=== PATIENT | female | born 1975 | race Caucasian/White ===

== ENCOUNTER 2016-11-20 10:30 | Outpatient (RCR) | payer MEDICAID ==
[~2016-11-20 10:30] MED LIST: AMOXICILLI125 MG/51 PO; AMOXICILLIN 50500 MG PO; ASPIR-LOW81 MG PO; BUMEX1 MG PO; CEPHALEXIN500 M1 PO; COUMADIN; DOXYCYCLINE 10100 MG PO; K + POTASSIUM20 MEQ PO; LASIX; LEVOTHYROXIN0.075 MG PO; LOPRESSOR 550 MG/TAB PO; MICRO-K8 MEQ PO; PERCOCET 5/321 UDTAB PO; POTASSIUM CH2 MEQ/ML PO; PRENATAL VITAMI1 TA5 PO; PRENATAL1 TA1 PO; PROZAC WEEKLY 990 MG PO; SERTRALINE; SYNTHROID0.05 MG/TA PO; TORSEMIDE20 MG PO; VICODIN 5/5001 UDTAB PO; VIT B6; VITAMIN B12 PO; [UNRECOGNIZED DRUG - OTHER]
== END 2017-01-26 | disposition home or self-care (01) ==
LOC: MKS.ESL.PT
DX: I89.0 Lymphedema, not elsewhere classified (principal)

== ENCOUNTER 2017-04-28 14:36 | Inpatient (IN) | payer MEDICAID ==
[~2017-04-28] VITALS: Ht 157.5 cm; Wt 197.3 kg
[2017-04-28 14:56] VITALS: BP 122/67; PULSE 99; TEMP 98.7
[2017-04-28] MEDS ORDERED: ABILIFY 10MG TA10 MG PO (15:00)
[2017-04-28] MEDS ORDERED: K-DUR20 MEQ PO (15:00)
[2017-04-28] MEDS ORDERED: VENTOLIN0.09 MG IH (15:01)
[2017-04-28] MEDS ORDERED: STRATTERA80 MG PO (15:02)
[2017-04-28] MEDS ORDERED: ZAROXOLYN 2.52.5 MG PO (15:10)
[2017-04-28] MEDS ORDERED: CYMBALTA 60MG60 MG PO (15:19)
[2017-04-28 16:01] VITALS: BP 122/67; PULSE 99; TEMP 98.7
[2017-04-28 16:30] LABS: MEAN CELL VOLUME 82 fl (80.0-100.0); MEAN CORPUSCULAR HGB CONC 33 g/dl (33.0-37.0); MEAN PLATELET VOLUME 9.1 fl (7.4-10.4); PLATELET COUNT 281 K/mm3 (130-400); RED BLOOD COUNT 4.07 M/mm3 (4.10-5.30); REDCELL DISTRIBUTION WIDTH-CV 15.8 % (11.5-14.5); WHITE BLOOD COUNT 13.4 K/mm3 (4.8-10.8)
[2017-04-28 16:42] LABS: ADJUSTED CALCIUM 8.7 mg/dL (8.4-10.2); BILIRUBIN,TOTAL 1.3 mg/dL (0.0-1.0); CALCIUM 7.9 mg/dL (8.4-10.2); CREATININE, serum 0.7 mg/dL (0.52-1.25); TOTAL PROTEIN 6.8 gm/dL (6.4-8.2)
[2017-04-28 16:44] LABS: HEMATOCRIT 33.4 % (37.0-47.0); HEMOGLOBIN 11.1 g/dl (12.5-16.0); MEAN CORPUSCULAR HEMOGLOBIN 27 pg (27.0-31.0); POTASSIUM 2.3 mmol/L (3.4-5.0)
[2017-04-28 17:04] LABS: C-REACTIVE PROTEIN 22.8 mg/dL (0.0-0.9)
[2017-04-28 17:10] LABS: MAGNESIUM 1.8 mg/dL (1.6-2.3)
[2017-04-28 17:32] LABS: BAND 24 % (0-10); METAMYELOCYTE 3 % (0-0); MICROCYTOSIS 1+; MYELOCYTE 2 % (0-0); NEUTROPHILS 53 % (42.0-75.2); TOTAL CELLS COUNTED 100
[2017-04-28 17:33] LABS: PLATELET ESTIMATE NORMAL (NORMAL)
[2017-04-28 17:34] LABS: ADD PATHOLOGY DIFF REVIEW YES
[2017-04-28 20:12] LABS: PH 5 (5-8); SQUAMOUS EPITHELIAL 0-2 /hpf; URINE APPEARANCE Clear; URINE BACTERIA Rare /hpf; URINE BILIRUBIN Negative (NEGATIVE); URINE BLOOD Negative (NEGATIVE); URINE COLOR Amber; URINE GLUCOSE Negative (NEGATIVE); URINE KETONE 1+ (NEGATIVE); URINE RBC 0-2 /hpf; URINE UROBILINOGEN >=4.0 mg/dL (NEGATIVE)
[2017-04-28 20:40] VITALS: BP 109/52; PULSE 83; TEMP 98.5
[2017-04-29] VITALS (7 sets, daily range): BP systolic 100–124; BP diastolic 55–69; PULSE 68–86; TEMP 97.8–98.8
[2017-04-29 07:37] LABS: MEAN CELL VOLUME 85 fl (80.0-100.0); MEAN CORPUSCULAR HGB CONC 32 g/dl (33.0-37.0); MEAN PLATELET VOLUME 9.1 fl (7.4-10.4); PLATELET COUNT 306 K/mm3 (130-400); RED BLOOD COUNT 3.86 M/mm3 (4.10-5.30); REDCELL DISTRIBUTION WIDTH-CV 16.2 % (11.5-14.5); WHITE BLOOD COUNT 12.3 K/mm3 (4.8-10.8)
[2017-04-29 07:38] LABS: HEMATOCRIT 32.7 % (37.0-47.0); HEMOGLOBIN 10.3 g/dl (12.5-16.0); MEAN CORPUSCULAR HEMOGLOBIN 27 pg (27.0-31.0)
[2017-04-29 07:39] LABS: ADD PATHOLOGY DIFF REVIEW NO
[2017-04-29 07:54] LABS: CALCIUM 7.7 mg/dL (8.4-10.2); CREATININE, serum 0.71 mg/dL (0.52-1.25)
[2017-04-29 07:56] LABS: POTASSIUM 2.5 mmol/L (3.4-5.0)
[2017-04-29 08:58] LABS: BAND 33 % (0-10); BASOPHIL 1 % (0-2); METAMYELOCYTE 2 % (0-0); MYELOCYTE 1 % (0-0); NEUTROPHILS 39 % (42.0-75.2); TOTAL CELLS COUNTED 100
[2017-04-29 08:59] LABS: PLATELET ESTIMATE NORMAL (NORMAL)
[2017-04-30 03:58] VITALS: BP 104/54; PULSE 78; TEMP 97.5
[2017-04-30 08:12] LABS: PATHOLOGY DIFF REVIEW OK
[2017-04-30 08:28] VITALS: BP 123/80; PULSE 87; TEMP 98.2
[2017-04-30 08:32] LABS: MEAN CELL VOLUME 84 fl (80.0-100.0); MEAN CORPUSCULAR HGB CONC 32 g/dl (33.0-37.0); MEAN PLATELET VOLUME 8.9 fl (7.4-10.4); PLATELET COUNT 364 K/mm3 (130-400); RED BLOOD COUNT 4.09 M/mm3 (4.10-5.30); REDCELL DISTRIBUTION WIDTH-CV 16.4 % (11.5-14.5); WHITE BLOOD COUNT 14.4 K/mm3 (4.8-10.8)
[2017-04-30 08:39] LABS: ADD PATHOLOGY DIFF REVIEW NO; HEMATOCRIT 34.5 % (37.0-47.0); MEAN CORPUSCULAR HEMOGLOBIN 27 pg (27.0-31.0)
[2017-04-30 08:41] LABS: CALCIUM 8.1 mg/dL (8.4-10.2); CREATININE, serum 0.62 mg/dL (0.52-1.25); POTASSIUM 3.4 mmol/L (3.4-5.0)
[2017-04-30 09:25] LABS: BAND 12 % (0-10); EOSINOPHIL 1 % (0-4); METAMYELOCYTE 1 % (0-0); MYELOCYTE 1 % (0-0); NEUTROPHILS 71 % (42.0-75.2); PLATELET ESTIMATE NORMAL (NORMAL); TOTAL CELLS COUNTED 100
[2017-04-30 09:26] LABS: MICROCYTOSIS 1+
[2017-04-30 12:08] VITALS: BP 119/71; PULSE 83; TEMP 97.6
[2017-04-30 16:10] VITALS: BP 114/48; PULSE 86; TEMP 98
[2017-04-30 20:27] VITALS: BP 107/48; PULSE 88; TEMP 98.7
[2017-04-30 23:34] VITALS: BP 108/42; PULSE 86; TEMP 98.4
[2017-05-01 03:02] VITALS: BP 113/49; PULSE 65; TEMP 98.7
[2017-05-01 08:26] VITALS: BP 109/46; PULSE 85; TEMP 98.5
[2017-05-01 09:25] LABS: MEAN CELL VOLUME 84 fl (80.0-100.0); MEAN CORPUSCULAR HGB CONC 32 g/dl (33.0-37.0); MEAN PLATELET VOLUME 8.6 fl (7.4-10.4); PLATELET COUNT 362 K/mm3 (130-400); RED BLOOD COUNT 3.95 M/mm3 (4.10-5.30); REDCELL DISTRIBUTION WIDTH-CV 16.2 % (11.5-14.5)
[2017-05-01 09:30] LABS: ADD PATHOLOGY DIFF REVIEW NO; HEMATOCRIT 33.2 % (37.0-47.0); HEMOGLOBIN 10.6 g/dl (12.5-16.0); MEAN CORPUSCULAR HEMOGLOBIN 27 pg (27.0-31.0)
[2017-05-01 09:43] LABS: CALCIUM 8.1 mg/dL (8.4-10.2); CREATININE, serum 0.62 mg/dL (0.52-1.25); POTASSIUM 3.4 mmol/L (3.4-5.0)
[2017-05-01 10:58] LABS: BAND 9 % (0-10); EOSINOPHIL 4 % (0-4); METAMYELOCYTE 2 % (0-0); MYELOCYTE 3 % (0-0); NEUTROPHILS 73 % (42.0-75.2); PLATELET ESTIMATE NORMAL (NORMAL); TOTAL CELLS COUNTED 100
[2017-05-01 10:59] LABS: ANISOCYTOSIS 1+; OVALOCYTES 1+; POLYCHROMASIA 1+; TOXIC GRANULATION PRESENT
[2017-05-01 11:32] VITALS: BP 118/59; PULSE 82; TEMP 98.2
[2017-05-01 15:20] VITALS: BP 111/60; BP 138/121; PULSE 80; TEMP 98.4
[2017-05-01 20:30] VITALS: BP 107/57; PULSE 83; TEMP 98.1
[2017-05-02 03:14] VITALS: BP 128/64; PULSE 73; TEMP 97.5
[2017-05-02 07:38] VITALS: BP 116/66; PULSE 66; TEMP 97.9
[2017-05-02 07:50] LABS: MEAN CELL VOLUME 87 fl (80.0-100.0); MEAN CORPUSCULAR HGB CONC 31 g/dl (33.0-37.0); PLATELET COUNT 412 K/mm3 (130-400); RED BLOOD COUNT 3.99 M/mm3 (4.10-5.30); REDCELL DISTRIBUTION WIDTH-CV 16.6 % (11.5-14.5); WHITE BLOOD COUNT 13.2 K/mm3 (4.8-10.8)
[2017-05-02 07:57] LABS: HEMATOCRIT 34.6 % (37.0-47.0); HEMOGLOBIN 10.8 g/dl (12.5-16.0); MEAN CORPUSCULAR HEMOGLOBIN 27 pg (27.0-31.0)
[2017-05-02 07:58] LABS: ADD PATHOLOGY DIFF REVIEW NO
[2017-05-02 07:59] LABS: CALCIUM 8.6 mg/dL (8.4-10.2); CREATININE, serum 0.71 mg/dL (0.52-1.25); POTASSIUM 4.6 mmol/L (3.4-5.0)
[2017-05-02 11:25] VITALS: BP 106/69; PULSE 68; TEMP 96.9
[2017-05-02 13:36] LABS: BAND 15 % (0-10); EOSINOPHIL 1 % (0-4); NEUTROPHILS 74 % (42.0-75.2); PLATELET ESTIMATE INCREASED (NORMAL); TOTAL CELLS COUNTED 100
[2017-05-02 15:30] VITALS: BP 123/59; PULSE 74; TEMP 96.7
[2017-05-02 20:26] VITALS: BP 110/52; PULSE 78; TEMP 97.7
[2017-05-03 01:29] VITALS: BP 116/42; PULSE 88; TEMP 97.7
[2017-05-03 04:51] VITALS: BP 108/42; PULSE 76; TEMP 98
[2017-05-03 07:59] VITALS: BP 114/56; PULSE 72; TEMP 98.2
[2017-05-03 08:40] LABS: MEAN CELL VOLUME 86 fl (80.0-100.0); MEAN CORPUSCULAR HGB CONC 32 g/dl (33.0-37.0); MEAN PLATELET VOLUME 8.5 fl (7.4-10.4); PLATELET COUNT 402 K/mm3 (130-400); REDCELL DISTRIBUTION WIDTH-CV 16.4 % (11.5-14.5); WHITE BLOOD COUNT 13.2 K/mm3 (4.8-10.8)
[2017-05-03 08:51] LABS: ADD PATHOLOGY DIFF REVIEW NO; HEMATOCRIT 34.4 % (37.0-47.0); HEMOGLOBIN 10.9 g/dl (12.5-16.0); MEAN CORPUSCULAR HEMOGLOBIN 27 pg (27.0-31.0)
[2017-05-03 09:49] LABS: BAND 18 % (0-10); EOSINOPHIL 2 % (0-4); METAMYELOCYTE 1 % (0-0); MYELOCYTE 2 % (0-0); NEUTROPHILS 67 % (42.0-75.2); PLATELET ESTIMATE INCREASED (NORMAL); TOTAL CELLS COUNTED 100
[2017-05-03 09:50] LABS: ANISOCYTOSIS 1+
[2017-05-03 11:28] VITALS: BP 112/46; PULSE 79; TEMP 97.7
[2017-05-03 15:21] VITALS: BP 126/56; PULSE 79; TEMP 99
[2017-05-03] MEDS ORDERED: NORCO 325 MG-51 TAB PO (15:23)
[2017-05-03] MEDS ORDERED: CIPRO750 MG PO (15:25)
[2017-05-03] MEDS ORDERED: DOXYCYCLINE 10100 MG PO (15:26)
[2017-05-03] MEDS ORDERED: MULTIPLE VITAMI1 CAP PO (15:27)
== END 2017-05-03 16:34 | disposition home or self-care (01) | DRG 603 ==
LOC: MEDICAL 14:36
PROVIDERS: Internal Medicine; Physician Assistant
DX: L03.116 Cellulitis of left lower limb (principal); E87.1 Hypo-osmolality and hyponatremia; N39.0 Urinary tract infection, site not specified; Z68.45 Body mass index [BMI] 70 or greater, adult; I89.0 Lymphedema, not elsewhere classified; E66.01 Morbid (severe) obesity due to excess calories; E03.9 Hypothyroidism, unspecified; F32.9 Major depressive disorder, single episode, unspecified; B96.20 Unspecified Escherichia coli [E. coli] as the cause of diseases classified elsewhere; Z86.718 Personal history of other venous thrombosis and embolism
CPT/HCPCS: 99222-AI; 99232-AI; 99233-AI; 99239; J0690; J0692; J1650; J2270; J3370; J7040

== ENCOUNTER 2018-02-11 13:52 | Emergency (ER) | payer MEDICAID ==
[~2018-02-11] VITALS: Ht 162.6 cm; Wt 210.5 kg
[~2018-02-11 13:52] MED LIST changes: +ABILIFY 10MG TA10 MG PO; +CIPRO750 MG PO; +CYMBALTA 60MG60 MG PO; +K-DUR20 MEQ PO; +MULTIPLE VITAMI1 CAP PO; +NORCO 325 MG-51 TAB PO; +STRATTERA80 MG PO; +VENTOLIN0.09 MG IH; +ZAROXOLYN 2.52.5 MG PO
[2018-02-11 13:56] VITALS: TEMP 98.1
[2018-02-11 14:57] LABS: BASO % 0.5 % (0.0-2.0); EOS # 0.1 (0.0-0.7); EOS % 0.9 % (0-4.0); GRAN # 4.5 (1.4-6.5); GRAN % 70.4 % (42.2-75.2); HEMATOCRIT 41.7 % (37.0-47.0); HEMOGLOBIN 13.8 g/dl (12.5-16.0); LYMPH # 1.2 (1.2-3.4); MEAN CELL VOLUME 87 fl (80.0-100.0); MEAN CORPUSCULAR HEMOGLOBIN 29 pg (27.0-31.0); MEAN CORPUSCULAR HGB CONC 33 g/dl (33.0-37.0); MEAN PLATELET VOLUME 9.2 fl (7.4-10.4); MONO # 0.6 (0.1-0.6); MONO % 8.7 % (1.7-9.3); PLATELET COUNT 284 K/mm3 (130-400); RED BLOOD COUNT 4.81 M/mm3 (4.10-5.30); REDCELL DISTRIBUTION WIDTH-CV 12.4 % (11.5-14.5)
[2018-02-11 15:10] LABS: BILIRUBIN,TOTAL 0.8 mg/dL (0.0-1.0); CALCIUM 9.4 mg/dL (8.4-10.2); CREATININE, serum 0.65 mg/dL (0.52-1.25); POTASSIUM 3.9 mmol/L (3.4-5.0); TOTAL PROTEIN 8.7 gm/dL (6.4-8.2)
[2018-02-11] MEDS ORDERED: AMOXICILLIN 8751 TAB PO (16:07)
[2018-02-11 16:31] VITALS: BP 135/77; PULSE 70
[2018-02-11] MEDS ORDERED: BUMEX 1MG TA1 MG/TA1 PO (16:35)
== END 2018-02-11 17:00 | disposition home or self-care (01) ==
LOC: COL.ER 13:52
PROVIDERS: Emergency Medicine
DX: L03.115 Cellulitis of right lower limb (principal); L03.116 Cellulitis of left lower limb; E66.01 Morbid (severe) obesity due to excess calories; E03.9 Hypothyroidism, unspecified; Z68.45 Body mass index [BMI] 70 or greater, adult; Z98.890 Other specified postprocedural states
CPT/HCPCS: J0690; J7040

== ENCOUNTER → 2018-03-31 | Outpatient (REF) ==
[~2018-03-31] MED LIST changes: +AMOXICILLIN 8751 TAB PO; +BUMEX 1MG TA1 MG/TA1 PO
[2018-03-31 18:53] LABS: THYROID STIMULATING HORMONE < 0.015 uIU/mL (0.465-4.680)
== END ==
LOC: ZLAB.WCH 17:53
PROVIDERS: Family Medicine
DX: Z01.89 Encounter for other specified special examinations (principal)

== ENCOUNTER 2018-08-19 14:06 | Outpatient (RCR) | payer MEDICAID | END 2018-11-17 | disposition home or self-care (01) | LOC: MKS.ESL.PT | DX: I89.0 Lymphedema, not elsewhere classified (principal); E66.01 Morbid (severe) obesity due to excess calories; Z68.45 Body mass index [BMI] 70 or greater, adult; L98.9 Disorder of the skin and subcutaneous tissue, unspecified; R26.89 Other abnormalities of gait and mobility ==

== ENCOUNTER 2020-06-12 13:57 | Outpatient (RCR) | payer MEDICAID | END 2020-08-29 10:09 | disposition home or self-care (01) | LOC: WSPT 13:57 | DX: I89.0 Lymphedema, not elsewhere classified (principal); E66.01 Morbid (severe) obesity due to excess calories ==

== ENCOUNTER 2021-09-05 20:33 | Inpatient (IN) | payer MEDICAID ==
[~2021-09-05] VITALS: Ht 162.6 cm; Wt 180.7 kg
[2021-09-05 21:17] LABS: BASO % 0.5 % (0.0-2.0); EOS # 0.4 K/mm3 (0.0-0.7); EOS % 4.6 % (0-4.0); GRAN # 6.2 K/mm3 (1.4-6.5); GRAN % 71.1 % (42.2-75.2); HEMATOCRIT 29.3 % (37.0-47.0); HEMOGLOBIN 8.9 g/dl (12.5-16.0); LYMPH # 1.2 K/mm3 (1.2-3.4); LYMPH % 13.8 % (20.0-51.0); MEAN CELL VOLUME 79 fl (80.0-100.0); MEAN CORPUSCULAR HEMOGLOBIN 24 pg (27.0-31.0); MEAN CORPUSCULAR HGB CONC 30 g/dl (33.0-37.0); MEAN PLATELET VOLUME 8.9 fl (7.4-10.4); MONO # 0.8 K/mm3 (0.1-0.6); MONO % 9.3 % (1.7-9.3); PLATELET COUNT 334 K/mm3 (130-400); RED BLOOD COUNT 3.71 M/mm3 (4.10-5.30); REDCELL DISTRIBUTION WIDTH-CV 17.2 % (11.5-14.5)
[2021-09-05 21:31] LABS: ALANINE AMINOTRANSFERASE 18 U/L (0-55); ALBUMIN 3.2 gm/dL (3.5-5.0); ALKALINE PHOSPHATASE 102 U/L (40-150); ANION GAP 11 mmol/L (7-16); AST,SGOT 22 U/L (5-34); BILIRUBIN,TOTAL 0.4 mg/dL (0.2-1.2); BLOOD UREA NITROGEN 18 mg/dL (7-19); CALCIUM 8.4 mg/dL (8.4-10.2); CARBON DIOXIDE 20 mmol/L (22-29); CHLORIDE 108 mmol/L (98-107); CREATINE KINASE 89 U/L (29-168); CREATININE, serum 0.76 mg/dL (0.57-1.11); GLUCOSE 88 mg/dL (70-99); POTASSIUM 3.6 mmol/L (3.5-4.5); SODIUM 139 mmol/L (136-145); TOTAL PROTEIN 7.1 gm/dL (6.2-8.1)
[2021-09-05 21:34] LABS: COLLECTION METHOD IN
[2021-09-05 21:37] LABS: TROPONIN-I < 0.010 ng/mL (0.00-0.033)
[2021-09-05 21:42] LABS: MUCOUS Present /lpf; PH 5 (5-8); SQUAMOUS EPITHELIAL None Seen /hpf; URINE APPEARANCE Hazy; URINE BACTERIA None Seen /hpf; URINE BILIRUBIN Negative (NEGATIVE); URINE BLOOD Negative (NEGATIVE); URINE COLOR Amber; URINE GLUCOSE Negative (NEGATIVE); URINE KETONE Negative (NEGATIVE); URINE LEUKOCYTE ESTERASE Negative (NEGATIVE); URINE NITRATE Negative (NEGATIVE); URINE PROTEIN(semi-quant) Negative (NEGATIVE); URINE RBC 0-2 /hpf; URINE UROBILINOGEN Negative (NEGATIVE)
[2021-09-05] MEDS ORDERED: SYNTHROID 0.10.15 MG PO (23:12)
[2021-09-05] MEDS ORDERED: K-DUR20 MEQ PO (23:13)
[2021-09-05] MEDS ORDERED: ZOLOFT 100MG100 MG PO (23:14)
[2021-09-05] MEDS ORDERED: ELIQUIS 5MG PO (23:17)
[2021-09-05] MEDS ORDERED: NITROSTAT0.4 MG/TAB SL (23:19)
[2021-09-05] MEDS ORDERED: KAPSPARGO SPRIN25 MG PO (23:20)
[2021-09-05] MEDS ORDERED: NORVASC2.5 MG PO (23:20)
[2021-09-05 23:23] LABS: C-REACTIVE PROTEIN 3.68 mg/dL (0.00-0.50)
[2021-09-05 23:25] LABS: MAGNESIUM 1.8 mg/dL (1.6-2.6)
[2021-09-05 23:45] LABS: THYROID STIMULATING HORMONE 12.219 uIU/mL (0.350-4.940)
[2021-09-05 23:49] LABS: IRON,SERUM 18 ug/dL (35-150); TOTAL IRON BINDING CAPACITY 341 ug/dL (265-497)
[2021-09-06 00:08] LABS: INR 1.2 (0.8-3.0); PROTHROMBIN TIME 12.9 SECONDS (9.7-12.8)
--- NOTE | 2021-09-06 00:35 | NUR ---
PATIENT ARRIVED TO ROOM FOR ADMIT TO SURGICAL UNIT VIA E.D. CART, PCT PRESENT. KatjaYGEN CONTINUES PER NC AT 2LPM. OBTAINED BEDSCALE WEIGHT OF 202.8 KG
--- NOTE | 2021-09-06 00:38 | NUR ---
REPORTS HAS RADIATING NUMBNESS DOWN LEFT ARM INTERMITTENT X1 WEEK, INDEPENDENT OF USE OR POSITIONING OF LUE. REPORTS DRIBBLING WITH WALKING UP STAIRS AND REPORTED WOULD URINATE UP TO TWICE A DAY.
[2021-09-06 00:48] VITALS: BP 106/47; PULSE 89; TEMP 98.2
[2021-09-06] MEDS ORDERED: VITAMIN B122500 MCG SL (01:02)
[2021-09-06] MEDS ORDERED: NATURAL IRON65 MG PO (01:04)
--- NOTE | 2021-09-06 02:45 | NUR ---
Spoke to pt about home CPAP usage. Pt states she wore a CPAP in the past but in her current living arrangement, she feared the CPAP would get ruined with bugs, therefore pt has not wore CPAP in a long time. Pt states she would try wearing CPAP while here. Pt is very awake at this time and would like to start the CPAP tomorrow night.
[2021-09-06 04:24] VITALS: BP 109/47; PULSE 79; TEMP 98.1
--- NOTE | 2021-09-06 06:11 | NUR ---
REPORTS HAS BURNING SENSATION DOWN L FOREARM FROM ELBOW TO THUMB SIDE OF LEFT HAND, REPORTS HAS MOVEMENT TO LEFT ARM WITH NO OTHER COMPLAINTS REPORTED AT THIS TIME.
[2021-09-06 07:08] LABS: BASO % 0.6 % (0.0-2.0); EOS # 0.4 K/mm3 (0.0-0.7); EOS % 5.7 % (0-4.0); GRAN # 4.2 K/mm3 (1.4-6.5); GRAN % 61.2 % (42.2-75.2); LYMPH # 1.4 K/mm3 (1.2-3.4); LYMPH % 20.5 % (20.0-51.0); MEAN CELL VOLUME 78 fl (80.0-100.0); MEAN CORPUSCULAR HGB CONC 30 g/dl (33.0-37.0); MEAN PLATELET VOLUME 8.7 fl (7.4-10.4); MONO # 0.8 K/mm3 (0.1-0.6); MONO % 11.6 % (1.7-9.3); PLATELET COUNT 286 K/mm3 (130-400)
[2021-09-06 07:10] LABS: HEMATOCRIT 25.7 % (37.0-47.0); HEMOGLOBIN 7.8 g/dl (12.5-16.0); MEAN CORPUSCULAR HEMOGLOBIN 24 pg (27.0-31.0)
[2021-09-06 07:25] LABS: CHOLESTEROL RISK RATIO 2.7; CREATININE, serum 0.74 mg/dL (0.57-1.11); POTASSIUM 3.6 mmol/L (3.5-4.5)
--- NOTE | 2021-09-06 07:26 | NUR ---
CHANGE OF SHIFT REPORT GIVEN TO DAY SHIFT NURSEJORGE RN.
--- NOTE | 2021-09-06 08:00 | NUR ---
Patient laying in bed watching her cell phone. A&Ox4. VSS. IV CDI. Felder intact clear yellow. Denies pain and discomfort. No reported SOB. Nurse reviewed the patients fluid restriction and the patient verbalized an understanding. No further needs expressed. Call light within reach
[2021-09-06 08:08] VITALS: BP 101/37; PULSE 77; TEMP 98.1
--- NOTE | 2021-09-06 11:29 | NUR ---
Plan is to return home in [place] with her adult children and friends. SW met with patient about her care. Patient reports that she is residing with friends because her trailer is not in good repair and cannot walk on the floor. Patient reports that her EMR contact is her DTR Niyah . Patient reports that she has a PCP Dr. Rayray Dickens in [place], Dr. Clement In [place], and Ela Gould for CHF. Patient reports that she uses the [place] [facility]. Patient reports that she uses a [facility] and has a CPAP machine but does not use it because were she is residing has bugs and does not want them to get into the machine. Patient reports that she does not drive because she does not have a car. Patient indicaed that she does not have transportation home. Another friend Mercedes Hamilton as alternate contact also. Patient reports pain in legs but denies any care concerns. Patient declined any home health services. Will continue to follow for care supports.
[2021-09-06 12:10] VITALS: BP 112/57; PULSE 67; TEMP 98.1
[2021-09-06 16:16] VITALS: BP 114/55; PULSE 68; TEMP 98
--- NOTE | 2021-09-06 17:53 | NUR ---
Patient has been resting in bed most of the shift. Did stand at the bedside with assistance of nursing staff while given a bed bath and bed linen change. A&Ox4. VSS. IV CDI. Felder intact. Interdry used between skin folds. Patient reporting midsternal chest pain, EDWIN Altamirano aware and new orders placed. No further needs expressed. Call light within reach
--- NOTE | 2021-09-06 18:55 | NUR ---
RECEIVED CHANGE OF SHIFT REPORT FROM DAY SHIFT NURSE. PATIENT SLEEPING DURING REPORT, DID NOT WAKE WHEN NURSING STAFF ENTERED ROOM. OBSERVED BREATHING NONLABORED AND EVEN. TELE IN PLACE. INT IN PLACE, WITH NO REDNESS. COLEMAN TO JEET DRAINING CLEAR YELLOW URINE AT TIME OF REPORT.
[2021-09-06 19:37] VITALS: BP 110/56; PULSE 70; TEMP 98.5
[2021-09-07 00:05] VITALS: BP 101/49; PULSE 64; TEMP 98
--- NOTE | 2021-09-07 01:18 | NUR ---
Patient care, medication administration and nursing documentation occurred during a Daylight Savings Time Change.
[2021-09-07 04:26] VITALS: BP 110/59; PULSE 88; TEMP 98.3
--- NOTE | 2021-09-07 06:10 | NUR ---
PATIENT REPORTS HAS BURNING DOWN L FORE ARM FROM L ELBOW DOWN TO THUMBSIDE OF LEFT HAND THAT PATIENT CONFIRMED HAS HAD COMPLAINTS OF DISCOMFORT IN THE PAST. COLEMAN TO DD WITH NO PROBLEMS. TELE IN PLACE.
--- NOTE | 2021-09-07 06:54 | NUR ---
CHANGE OF SHIFT REPORT GIVEN TO DAY SHIFT NURSE, RACHEL FIGUEROA.
--- NOTE | 2021-09-07 07:03 | NUR ---
REPORT RECIEVED FROM DARIO. PT RESTING IN BED. NO COMPLAINTS OF PAIN OR DYSPNEA. NO SIGNS OR SYMPTOMS OF DISTRESS. CALL LIGHT WITHIN REACH
[2021-09-07 07:31] VITALS: BP 116/42; PULSE 64; TEMP 97.8
[2021-09-07 07:32] LABS: CREATININE, serum 0.83 mg/dL (0.57-1.11); POTASSIUM 3.4 mmol/L (3.5-4.5)
[2021-09-07 07:48] LABS: BASO % 0.4 % (0.0-2.0); EOS # 0.4 K/mm3 (0.0-0.7); EOS % 5.4 % (0-4.0); GRAN # 4.5 K/mm3 (1.4-6.5); GRAN % 65.2 % (42.2-75.2); LYMPH # 1.3 K/mm3 (1.2-3.4); LYMPH % 19.1 % (20.0-51.0); MEAN CELL VOLUME 80 fl (80.0-100.0); MEAN CORPUSCULAR HGB CONC 30 g/dl (33.0-37.0); MEAN PLATELET VOLUME 8.7 fl (7.4-10.4); MONO # 0.7 K/mm3 (0.1-0.6); MONO % 9.5 % (1.7-9.3); PLATELET COUNT 294 K/mm3 (130-400); RED BLOOD COUNT 3.39 M/mm3 (4.10-5.30); REDCELL DISTRIBUTION WIDTH-CV 17.2 % (11.5-14.5)
[2021-09-07 07:58] LABS: MEAN CORPUSCULAR HEMOGLOBIN 24 pg (27.0-31.0)
--- NOTE | 2021-09-07 09:27 | NUR ---
ASSESSMENT COMPLETE. NO SIGNS OR SYMPTOMS OF DISTRESS. NO COMPLAINTS OF PAIN OR DYSPNEA. MEDICATIONS RECIEVED INCLUDING POTASSIUM PROTOCOL. CALL LIGHT WITHIN REACH
[2021-09-07 11:53] VITALS: BP 102/56; PULSE 59; TEMP 97.9
[2021-09-07 15:56] VITALS: BP 103/49; PULSE 60; TEMP 98.3
[2021-09-07 20:00] VITALS: BP 107/44; PULSE 63; TEMP 98
[2021-09-08] VITALS (8 sets, daily range): BP systolic 91–110; BP diastolic 42–67; PULSE 53–91; TEMP 97.5–98
--- NOTE | 2021-09-08 03:36 | NUR ---
RESTING QUIETLY/SLEEPING, CALL LIGHT IN REACH. CPAP ON. LUNGS DIMINSISHED IN BASES BUT NO DYSPNEA NOTED OR REPORTED.
[2021-09-08 07:16] LABS: BASO % 0.6 % (0.0-2.0); EOS # 0.4 K/mm3 (0.0-0.7); EOS % 5.7 % (0-4.0); GRAN # 4.4 K/mm3 (1.4-6.5); GRAN % 66.1 % (42.2-75.2); HEMATOCRIT 27.8 % (37.0-47.0); HEMOGLOBIN 8.4 g/dl (12.5-16.0); LYMPH # 1.2 K/mm3 (1.2-3.4); LYMPH % 17.7 % (20.0-51.0); MEAN CELL VOLUME 79 fl (80.0-100.0); MEAN CORPUSCULAR HEMOGLOBIN 24 pg (27.0-31.0); MEAN CORPUSCULAR HGB CONC 30 g/dl (33.0-37.0); MEAN PLATELET VOLUME 8.8 fl (7.4-10.4); MONO # 0.6 K/mm3 (0.1-0.6); MONO % 9.3 % (1.7-9.3); PLATELET COUNT 298 K/mm3 (130-400); REDCELL DISTRIBUTION WIDTH-CV 17.1 % (11.5-14.5)
[2021-09-08 07:29] LABS: CALCIUM 8.2 mg/dL (8.4-10.2); CREATININE, serum 0.83 mg/dL (0.57-1.11); POTASSIUM 3.7 mmol/L (3.5-4.5)
--- NOTE | 2021-09-08 08:08 | NUR ---
Patient resting in bed. Alert & oriented. She did well with breakfast. Aware of her fluid restriction. Bradford beckham DD. Int. Reports chronic pain, tyelnol Prn given. K+ replacement per protocol. Will monitor.
--- NOTE | 2021-09-08 11:31 | NUR ---
Patient assisted with hygiene. She was up to sink and brushed her teeth. Dyspnea with exertion. Extensive singh cares provided. Pannus cleansed with interdry placed. Leg folds cleanses & nystain ointment applied with interdry. Odor noted. Hospitalist & cardiology rounded & orders obtained. Therapy consulted. CHF notebook given to patient & reviewed. Patient seemed like she was aware of CHF restrictions. Dietary called to again review low sodium diet & continued fluid restriction.
--- NOTE | 2021-09-08 14:08 | NUR ---
Patient tolerated lunch & walked in halls with therapy.
--- NOTE | 2021-09-08 15:39 | NUR ---
CALLED & MADE AWARE OF BLOOD PRESSURE. SHE VERIFED STILL OKAY TO GIVE BUMEX DOSE.
--- NOTE | 2021-09-08 17:47 | NUR ---
Patient resting in bed. Dinner ordered. Good output from afternoon dose of bumex. Bradford remains to DD. She remains aware of fluid restriction. Will report off to nightnurse
--- NOTE | 2021-09-08 20:00 | NUR ---
Report received, assumed care for shift supervisor. Assessment complete. A&Ox4. Denies pain/nausea/shortness of breath. Noted to be short of breath with activity. Tele showing SR with 1AVB. Felder cath with yellow urine/sediment. Plan of care discussed for this shift to include fluid restriction. Verbalizes unerstanding/denies needs. Call light in reach. Will monitor.
[2021-09-09] VITALS (7 sets, daily range): BP systolic 98–129; BP diastolic 42–58; PULSE 52–70; TEMP 97.3–99.2
--- NOTE | 2021-09-09 05:28 | NUR ---
Rested well this shift. Wore CPAP all night and tolerated well. Fluid restriction enforced. 2700 out to singh this shift. Short of breath with activity. Denied pain. VS remained stable. Call light in reach. Will monitor.
--- NOTE | 2021-09-09 06:45 | NUR ---
awake resting in bed, bedside shift report received from HENRY Sanchez
[2021-09-09 07:06] LABS: CALCIUM 8.4 mg/dL (8.4-10.2); CREATININE, serum 0.82 mg/dL (0.57-1.11)
--- NOTE | 2021-09-09 07:30 | NUR ---
Shift assessment completed. Reports 4 out of 10 aching pain in lower back and legs. Lungs diminished in bases but no dyspnea noted or reported. Unable to palpate posterior tibial pulses. INT intact in left antecubital with no redness or swelling noted. Indwelling singh catheter intact with 270 mL of orange cloudy urine. Call light in reach.
[2021-09-09 08:21] LABS: BASO % 0.6 % (0.0-2.0); EOS # 0.4 K/mm3 (0.0-0.7); EOS % 5.2 % (0-4.0); GRAN # 4.9 K/mm3 (1.4-6.5); GRAN % 68.3 % (42.2-75.2); LYMPH # 1.1 K/mm3 (1.2-3.4); LYMPH % 15.8 % (20.0-51.0); MEAN CELL VOLUME 79 fl (80.0-100.0); MEAN CORPUSCULAR HGB CONC 31 g/dl (33.0-37.0); MEAN PLATELET VOLUME 8.8 fl (7.4-10.4); MONO # 0.7 K/mm3 (0.1-0.6); MONO % 9.5 % (1.7-9.3); PLATELET COUNT 316 K/mm3 (130-400); RED BLOOD COUNT 3.61 M/mm3 (4.10-5.30); REDCELL DISTRIBUTION WIDTH-CV 16.9 % (11.5-14.5)
[2021-09-09 08:23] LABS: HEMATOCRIT 28.5 % (37.0-47.0); HEMOGLOBIN 8.7 g/dl (12.5-16.0); MEAN CORPUSCULAR HEMOGLOBIN 24 pg (27.0-31.0)
--- NOTE | 2021-09-09 08:27 | NUR ---
sitting up in bed eating breakfast, am meds given, will complete assessment when she is finished with breakfast
--- NOTE | 2021-09-09 09:11 | NUR ---
is now just resting in bed, full assessment completed, have reviewed assessment completed by student CHECK VIEWER and in agreement with that assessment
--- NOTE | 2021-09-09 10:33 | NUR ---
physical therapy in to work with patient and assisted her up and into chair, states she feels a little "woozy", but will lay her head back and relax, instructed to notify staff if it changes, verbalizes understanding
--- NOTE | 2021-09-09 12:45 | NUR ---
assisted up and ambulated from chair to bathroom and had bowel movement, then back to Maylin youssef PA in to see patient
--- NOTE | 2021-09-09 14:32 | NUR ---
back in bed at this time and appears to be dozing
--- NOTE | 2021-09-09 14:42 | NUR ---
SW met with the patient to introduce oneself and to review discharge plan. The patient confirms that she has been staying with her friend, Mag Hamilton, in [place]. She reports that her home was inhabitable and that she plans on staying with Mag until she can find a new home. The patient reports that she has four children, but that her youngest two are not in her custody. Her oldest two: Beny ([id number]) and Niyah ([id number]) live around [place]. PT recommends home with possible home health. The patient has Medicaid and it does not pay for PT/OT home health. SW informed the patient of this and informed her of outpatient therapy. The patient reports that she feels comfortable returning back to her friend's home. She reports that she would probably be interested in outpatient therapy at [facility]. She reports that she does not drive and her friend and children do not have vehicles, but that she utilizes her Medicaid transportation. She states that she can set up transportation to her appointments, as long as she call three days in advance. *Discharge plan: home with friend*
--- NOTE | 2021-09-09 18:47 | NUR ---
bedside shift report given to HENRY Sanchez
--- NOTE | 2021-09-09 20:00 | NUR ---
Report received, assumed care for steward/stewardess night. Assessment complete. A&Ox4. Denies pain/nausea/shortness of breath. VS stable-hypotensive. INT to left AC. Fluid restriction enforced/singh cath with dark yellow urine. Noted to have excoriation behind knees and in skin folds/groin. Plan of care discussed for this shift to include medications/CPAP/fluid restriction/calling for questions/concerns. Verbalizes understanding/denies current needs. Call light in reach. Will monitor.
--- NOTE | 2021-09-10 00:30 | NUR ---
Resting eyes closed. No s/s of pain/distress noted. CPAP on.
[2021-09-10 03:37] VITALS: BP 104/39; PULSE 56; TEMP 98
--- NOTE | 2021-09-10 05:17 | NUR ---
Rested off and on this shift. Denied pain/nausea/shortness of breath at rest. Still gets SOA with activity. VS remained stable although still hypotensive-Erna is aware. Fluid restriction enforced. Denies current needs. Call light in reach. Will monitor.
[2021-09-10 05:34] VITALS: BP 105/50
--- NOTE | 2021-09-10 07:15 | NUR ---
RECEIVED REPORT FROM EHNRY TEAGUE. PT AWAKE/ALERT IN BED. DENIES PAIN. NO NEEDS AT THIS TIME. CALL SOLER IN REACH.
[2021-09-10 07:17] LABS: BASO # 0.1 K/mm3 (0.0-0.2); BASO % 0.8 % (0.0-2.0); EOS # 0.5 K/mm3 (0.0-0.7); EOS % 6.1 % (0-4.0); GRAN # 5.1 K/mm3 (1.4-6.5); GRAN % 66.2 % (42.2-75.2); HEMATOCRIT 30.2 % (37.0-47.0); HEMOGLOBIN 8.9 g/dl (12.5-16.0); LYMPH # 1.3 K/mm3 (1.2-3.4); LYMPH % 17.3 % (20.0-51.0); MEAN CELL VOLUME 79 fl (80.0-100.0); MEAN CORPUSCULAR HEMOGLOBIN 23 pg (27.0-31.0); MEAN CORPUSCULAR HGB CONC 30 g/dl (33.0-37.0); MEAN PLATELET VOLUME 8.7 fl (7.4-10.4); MONO # 0.7 K/mm3 (0.1-0.6); MONO % 8.8 % (1.7-9.3); PLATELET COUNT 340 K/mm3 (130-400); RED BLOOD COUNT 3.83 M/mm3 (4.10-5.30); REDCELL DISTRIBUTION WIDTH-CV 16.7 % (11.5-14.5)
[2021-09-10 07:28] LABS: CREATININE, serum 0.83 mg/dL (0.57-1.11); POTASSIUM 3.7 mmol/L (3.5-4.5)
[2021-09-10 08:26] VITALS: BP 141/53; PULSE 59; TEMP 97.9
[2021-09-10 11:44] VITALS: BP 106/52; PULSE 54; TEMP 97.7
[2021-09-10] MEDS ORDERED: DIFLUCAN200 MG PO (14:17)
[2021-09-10] MEDS ORDERED: SYNTHROID 0.10.15 MG PO (14:23)
[2021-09-10] MEDS ORDERED: ZOLOFT 100MG100 MG PO (14:23)
[2021-09-10] MEDS ORDERED: NYSTATIN CREAM15 GM TP (14:24)
--- NOTE | 2021-09-10 15:15 | NUR ---
The hospitalist is ready to discharge the patient today. BRANDYN staffed with OT on whether they would recommend continued outpatient OT. OT reports that they would not recommend continued OT. BRANDYN contacted [facility] at [facility] and scheduled the patient a PT appointment on , 09/18, at 1000. BRANDYN notified the community outreach coordinator and the patient of the appointment. [facility]. The patient reports that she will need a ride home. BRANDYN contacted Cate with [employer] through the patient's insurance and secured the patient a ride back to her friend's house today. Trip ID#[id number]. [employer] gives an estimated arrival time anywhere from 30 minutes-3 hours. BRANDYN updated the patient and her RN. The patient is to discharge back to her friend's home today, 09/10, with outpatient PT at [facility]. No additional needs at this time.
[2021-09-10 16:04] VITALS: BP 130/58; PULSE 61; TEMP 97.9
== END 2021-09-10 17:06 | disposition home or self-care (01) | DRG 291 ==
LOC: COL.ER 20:33 → SURG 22:00
PROVIDERS: Emergency Medicine; Nurse Practitioner Family; Physician Assistant; ADMIT Student in an Organized Health Care Education/Training Program
DX: I11.0 Hypertensive heart disease with heart failure (principal); I50.33 Acute on chronic diastolic (congestive) heart failure; Z68.45 Body mass index [BMI] 70 or greater, adult; E66.01 Morbid (severe) obesity due to excess calories; E03.9 Hypothyroidism, unspecified; F32.A Depression, unspecified; I89.0 Lymphedema, not elsewhere classified; G47.33 Obstructive sleep apnea (adult) (pediatric); I42.1 Obstructive hypertrophic cardiomyopathy; E11.9 Type 2 diabetes mellitus without complications; E87.6 Hypokalemia; D50.9 Iron deficiency anemia, unspecified; I08.1 Rheumatic disorders of both mitral and tricuspid valves; B37.2 Candidiasis of skin and nail; I48.91 Unspecified atrial fibrillation; M06.9 Rheumatoid arthritis, unspecified; J44.9 Chronic obstructive pulmonary disease, unspecified; K21.9 Gastro-esophageal reflux disease without esophagitis; F41.9 Anxiety disorder, unspecified; T50.1X6A Underdosing of loop [high-ceiling] diuretics, initial encounter; Z91.138 Patient's unintentional underdosing of medication regimen for other reason; Z86.718 Personal history of other venous thrombosis and embolism
CPT/HCPCS: 99223-AI; 99232-AI; 99233-AI; 99239; A4314; J1940; J2270

== ENCOUNTER 2023-08-02 23:48 | Emergency (ER) | payer MEDICAID ==
[~2023-08-02] VITALS: Ht 162.6 cm; Wt 179.1 kg
[~2023-08-02 23:48] MED LIST changes: +DIFLUCAN200 MG PO; +ELIQUIS 5MG PO; +KAPSPARGO SPRIN25 MG PO; +LASIX 20MG TABL20 MG PO; +LOPRESSOR 225 MG/TAB PO; +NATURAL IRON65 MG PO; +NITROSTAT0.4 MG/TAB SL; +NORVASC2.5 MG PO; +NYSTATIN CREAM15 GM TP; +OMNICEF 300MG300 MG PO; +SYNTHROID 0.0.025 MG PO; +SYNTHROID 0.10.15 MG PO; +VITAMIN B122500 MCG SL; +ZOLOFT 100MG100 MG PO
[2023-08-03 02:53] LABS: BASO # 0.1 K/mm3 (0.0-0.2); BASO % 0.6 % (0.0-2.0); EOS # 0.2 K/mm3 (0.0-0.7); EOS % 2.1 % (0.0-4.0); GRAN # 6.2 K/mm3 (1.4-6.5); HEMATOCRIT 40.4 % (37.0-47.0); LYMPH # 1.6 K/mm3 (1.2-3.4); LYMPH % 18.2 % (20.0-51.0); MEAN CELL VOLUME 89 fl (80.0-100.0); MEAN CORPUSCULAR HEMOGLOBIN 29 pg (27-31); MEAN CORPUSCULAR HGB CONC 32 g/dl (33.0-37.0); MEAN PLATELET VOLUME 8.9 fl (7.4-10.4); MONO # 0.7 K/mm3 (0.1-0.6); MONO % 7.6 % (1.7-9.3); PLATELET COUNT 279 K/mm3 (130-400); RED BLOOD COUNT 4.54 M/mm3 (4.10-5.30); REDCELL DISTRIBUTION WIDTH-CV 13.3 % (11.5-14.5)
[2023-08-03 03:19] LABS: ALBUMIN 3.7 gm/dL (3.5-5.0); BILIRUBIN,TOTAL 0.4 mg/dL (0.2-1.2); CALCIUM 9.1 mg/dL (8.4-10.2); POTASSIUM 3.8 mmol/L (3.5-4.5); TOTAL PROTEIN 7.7 gm/dL (6.2-8.1)
[2023-08-03 03:32] LABS: CREATININE, serum 0.93 mg/dL (0.57-1.11)
[2023-08-03 03:39] LABS: C-REACTIVE PROTEIN 2.47 mg/dL (0.00-0.50)
[2023-08-03 04:13] LABS: THYROID STIMULATING HORMONE 9.496 uIU/mL (0.350-4.940)
[2023-08-03 04:16] LABS: COLLECTION METHOD CLEAN CATCH
[2023-08-03 04:46] LABS: URINE APPEARANCE Hazy (CLEAR/HAZY); URINE BLOOD 2+ (NEGATIVE); URINE COLOR Amber (YELLOW); URINE GLUCOSE Negative (NEGATIVE); URINE KETONE TRACE (NEGATIVE); URINE NITRATE Negative (NEGATIVE); URINE PROTEIN(semi-quant) Negative (NEGATIVE); URINE UROBILINOGEN 0.2 E.U/dL (0.2-1.0)
[2023-08-03 04:47] LABS: MUCOUS Present (NOT PRESENT); URINE BACTERIA Occasional /hpf (NONE SEEN); URINE CALCIUM OXALATE CRYSTAL Present (NOT PRESENT); URINE RBC 0-2 /hpf (0-2)
[2023-08-03 05:11] VITALS: BP 121/89; PULSE 82
== END 2023-08-03 05:11 | disposition home or self-care (01) ==
LOC: COL.ER 23:48
PROVIDERS: Emergency Medicine
DX: R11.10 Vomiting, unspecified (principal); N93.9 Abnormal uterine and vaginal bleeding, unspecified; R94.6 Abnormal results of thyroid function studies

== ENCOUNTER 2023-12-08 16:25 | Inpatient (IN) | payer MEDICAID ==
[~2023-12-08] VITALS: Ht 160 cm; Wt 200.8 kg
[~2023-12-08 16:25] MED LIST changes: +LEVOXYL0.15 MG PO
[2023-12-08 18:43] LABS: BASO % 0.4 % (0.0-2.0); EOS # 0.1 K/mm3 (0.0-0.7); EOS % 0.6 % (0.0-4.0); GRAN # 7.5 K/mm3 (1.4-6.5); GRAN % 78.8 % (42.2-75.2); HEMATOCRIT 37.4 % (37.0-47.0); HEMOGLOBIN 11.4 g/dl (12.5-16.0); LYMPH # 1.2 K/mm3 (1.2-3.4); LYMPH % 12.6 % (20.0-51.0); MEAN CELL VOLUME 89 fl (80.0-100.0); MEAN CORPUSCULAR HEMOGLOBIN 27 pg (27-31); MEAN CORPUSCULAR HGB CONC 31 g/dl (33.0-37.0); MEAN PLATELET VOLUME 8.9 fl (7.4-10.4); MONO # 0.7 K/mm3 (0.1-0.6); MONO % 7.1 % (1.7-9.3); PLATELET COUNT 302 K/mm3 (130-400); RED BLOOD COUNT 4.19 M/mm3 (4.10-5.30); REDCELL DISTRIBUTION WIDTH-CV 14.6 % (11.5-14.5)
[2023-12-08 19:10] LABS: ALANINE AMINOTRANSFERASE 29 U/L (0-55); ALBUMIN 3.6 gm/dL (3.5-5.0); ALKALINE PHOSPHATASE 106 U/L (40-150); ANION GAP 11 mmol/L (7-16); AST,SGOT 52 U/L (5-34); BILIRUBIN,TOTAL 0.5 mg/dL (0.2-1.2); BLOOD UREA NITROGEN 20 mg/dL (10-20); CALCIUM 9.2 mg/dL (8.4-10.2); CARBON DIOXIDE 20 mmol/L (22-29); CHLORIDE 105 mmol/L (98-107); CREATININE, serum 0.82 mg/dL (0.57-1.11); GLUCOSE 84 mg/dL (70-99); POTASSIUM 4.1 mmol/L (3.5-4.5); SODIUM 136 mmol/L (136-145); TOTAL PROTEIN 7.9 gm/dL (6.2-8.1)
[2023-12-08 19:25] LABS: TROPONIN-I < 0.010 ng/mL (0.00-0.033)
[2023-12-08] MEDS ORDERED: Apixaban 5 MG TAB PO ONE (20:15)
[2023-12-08 22:15] VITALS: BP 134/80; PULSE 83; TEMP 97.5
[2023-12-08] MEDS ORDERED: Ibuprofen 400 MG TAB PO PRN (22:30)
[2023-12-08] MEDS ORDERED: Acetaminophen 325 MG TAB PO PRN (22:30)
[2023-12-08] MEDS ORDERED: Ondansetron 4 MG/2 ML VIAL IV PRN (22:30)
[2023-12-08] MEDS ORDERED: BUMEX 1MG TA1 MG/TA1 PO (22:34)
[2023-12-08] MEDS ORDERED: hydrALAZINE 20 MG/ML 1 ML VIAL IV PRN (23:00)
[2023-12-08] MEDS ORDERED: Nystatin 100,000 Units/GM Cream 15 GM TUBE TP SCH (23:12)
[2023-12-08] MEDS ORDERED: Nystatin Powder **** subs to Miconazole Powder TOP PRN (23:15)
[2023-12-08] MEDS ORDERED: Miconazole 2% Topical Powder BOTTLE TP PRN (23:15)
[2023-12-08 23:34] VITALS: BP 108/67; PULSE 76; TEMP 97
[2023-12-09] VITALS (13 sets, daily range): BP systolic 100–138; BP diastolic 48–86; PULSE 52–84; TEMP 97.4–98.1
--- NOTE | 2023-12-09 00:41 | NUR ---
patient arrived from ED around 2200, alert and oriented x4. self transfer to bathroom and bed with x1 assist and cane, rolled self onto bed. bottom slightly red, redness and moisture in BLE, panus, breasts, inner/back of thighs skin folds, nystatin cream and desenex powder with moisture cloth applied, purwick suction to wall. scarred tissued on left gonzalez, heels dry and cracked. BLE +2 to 3 pitting edema noted. pt denies chest pain and reports shortness of breath on exertion. reports pain 9/10 in left lower extremity primarily but both lower extremities, tylenol given. 2311- ELIS Marin notfied, request for nystatin and desenex, order placed. IV in LAC is patent, site is clean dry and intact. Pt has no further needs, questions, or concerns at this time. fall precautions in place, call light within reach. will continue to monitor.
[2023-12-09 06:45] LABS: BASO % 0.6 % (0.0-2.0); EOS # 0.2 K/mm3 (0.0-0.7); EOS % 2.3 % (0.0-4.0); GRAN # 4.3 K/mm3 (1.4-6.5); GRAN % 66.2 % (42.2-75.2); LYMPH # 1.5 K/mm3 (1.2-3.4); LYMPH % 22.2 % (20.0-51.0); MEAN CELL VOLUME 86 fl (80.0-100.0); MEAN CORPUSCULAR HGB CONC 31 g/dl (33.0-37.0); MEAN PLATELET VOLUME 8.8 fl (7.4-10.4); MONO # 0.6 K/mm3 (0.1-0.6); MONO % 8.4 % (1.7-9.3); PLATELET COUNT 242 K/mm3 (130-400); RED BLOOD COUNT 3.48 M/mm3 (4.10-5.30); REDCELL DISTRIBUTION WIDTH-CV 14.6 % (11.5-14.5)
[2023-12-09 06:51] LABS: HEMOGLOBIN 9.4 g/dl (12.5-16.0); MEAN CORPUSCULAR HEMOGLOBIN 27 pg (27-31)
[2023-12-09 06:56] LABS: CALCIUM 8.2 mg/dL (8.4-10.2); CREATININE, serum 0.69 mg/dL (0.57-1.11); POTASSIUM 3.8 mmol/L (3.5-4.5)
[2023-12-09 07:07] LABS: THYROID STIMULATING HORMONE 10.545 uIU/mL (0.350-4.940)
--- NOTE | 2023-12-09 08:00 | NUR ---
PT LAYING IN BED UPON ENTERING. MEDS GIVEN BY CHILO ROCHE STUDENT WITH INSTRUCTOR. PT DENIES PAIN OR SHORTNESS OF BREATH AT THIS TIME. INT TO LEFT AC PATENT. NON PITTING BILATERAL LOWER EXTREMITY EDEMA WITH ERYTHEMA BETWEEN SKIN FOLDS IN LOWER EXTREMITIES AND PANUS. NYSTATIN CREAM, MICONAZOLE POWDER AND INTERDRY APPLIED APPROPRIATELY. PUREWICK IN PLACE. PT DENIES NEEDS AT THIS TIME. BED IN LOWEST POSITION, CALL LIGHT IN REACH, BED ALARM ON
--- NOTE | 2023-12-09 08:37 | NUR ---
JENNIFER COOPER, NOTIFIED THIS NURSE THAT PT IS IN AFIB CURRENTLY. DR BARNHART NOTIFIED
--- NOTE | 2023-12-09 08:40 | NUR ---
Pt lying supine in bed with HOB raised. Shift assessment completed. A&O x4. Pt has no needs at this time.
[2023-12-09] MEDS ORDERED: Influenza Virus Vaccine, Quad '23-24 (6 MOS+) 0.5 ML SYRINGE IM SCH (09:00)
[2023-12-09] MEDS ORDERED: Apixaban 5 MG TAB PO SCH (09:00)
[2023-12-09] MEDS ORDERED: Bumetanide 1 MG TAB PO SCH ×2 (09:34→10:30)
[2023-12-09 10:35] LABS: INR 1.4 (0.8-3.0); PROTHROMBIN TIME 15.5 SECONDS (9.7-12.8)
--- NOTE | 2023-12-09 12:33 | NUR ---
BRANDYN Cary identified self as BRANDYN Luis Daniel and completed intake with patient at bedside. Patient stated that she lives in [place], [place] with her son and his fiance, daughter, and a roommate that has a kid. Patient stated that a good point of contact would be her daughter Prisca (ph#[phone]). Patient stated that she is currently sleeping on their floor as she doesn't currently have a bed. Patient stated that her and her family recently moved and they have not got completely settled in yet. Patient stated that she sees Elba Reid for primary care and prefers to obtain medications from [facility]. Patient stated that prior to hospitalization she was independent with ADLs but utilizes a cane when needed. Patient stated that she also uses a CPAP at night. Patient does not currently have a DPOA-HC. BRANDYN Cary reviewed DPOA-HC form with patient and let her know to notify staff if she would like to complete form. Patient is covered by [facility]. Patient expressed that she feels like she would need additional help before she goes home. BRANDYN Cary went over PT recommendation of FWW and home with HH. Patient stated that she would be interested in getting a FWW. BRANDYN Cary will contact local DME suppliers. BRANDYN Cary discussed with patient the possibility of PT/OT HH not being covered due to patient's insurance. BRANDYN Cary informed patient that referrals could be sent to [facility] and SNFs possibly. Patient expressed that she thinks she would need some additional rehab before she discharges home. She stated that where she currently lives, she does not think she would be able to move safely with her current strength. BRANDYN Cary was informed by CM Director Elba Burkett to send referrals to SNFs for a short term Medicaid stay. BRANDYN Cary was informed that [facility], [facility], and [facility] would not be options. BRANDYN Cary went over the three options of [facility], [facility], and [facility] with patient. Patient stated that she would prefer for referrals to be sent to [facility] and [facility]. [employer] Director Vidya faxed referrals to [facility] and [facility]. Discharge Plan: TBD
--- NOTE | 2023-12-09 14:44 | NUR ---
D: Initial visit: Provider Relations Representative stopped by room on rounds. Pt was resting and content. A: Pt has no needs right now. Pt is waiting on placement for a physical rehab facility. Pt appreciated the visit. P: Provider Relations Representative informed pt that if she needed anything to let her nurse know. Provider Relations Representative will follow up as needed.
--- NOTE | 2023-12-09 16:16 | NUR ---
BRANDYN Cary was informed that [facility] declined referral. BRANDYN Cary contacted Marco at [facility] and was informed that they were declining referral. BRANDYN Cary met with patient at bedside to inform her of declines. Patient expressed that she was really hoping for [facility] to accept as that would be the closest to her family. She stated that no one in the family has a vehicle so it is difficult to find transportation at times. BRANDYN Cary recommended referral also being sent to [facility] in [place]. Patient stated that she was hoping for first two preferences but would be fine with sending referral to [facility]. BRANDYN Student faxed referral to [facility]. Patient expressed that she would like her daughter Prisca and friend Vinita called and updated. BRANDYN Cary called and informed Vinita of patient's current discharge plan. BRANDYN Cary informed her that two facilities had declined referral and a third referral was sent. Vinita stated that herself and patient's adult kids agree that patient needs rehab before coming home if possible. BRANDYN aCry informed Vinita that if facilities decline patient may have to be discharged home instead. BRANDYN Cary informed that some HH agencies may be able to offer SN through patient's insurance. Vinita stated that patient was supposed to be set up with HH after last hospitalization, but no one ever showed up. She stated that she does not remember which agency it was. Vinita stated that herself and patient's adult kids have tried to get patient to be compliant with her dieting and medications, but she refuses to. Vinita stated that they have tried to get patient to go to [facility] multiple times but patient refuses. She stated that patient should be on psych medications but does not take them. Vinita stated that she plans on coming to visit patient tomorrow. BRANDYN Cary informed Vinita that a discussion with patient and herself could be tomorrow to discuss discharge plans. Vinita provided her contact number as [phone]. BRANDYN Cary informed her that SW number is written on board to contact if SW is not around when she gets here tomorrow. BRANDYN Cary called local DME suppliers to check on availability of bariatric FWW. [facility] stated that they did not have any in stock, and [facility] stated that they can not do bariatric DME. BRANDYN Student contact [facility] and they stated that they could possibly have one in a couple days. BRANDYN Student faxed bariatric FWW request to [facility] (fax#[phone]). Discharge Plan: Possibly Home with HH
--- NOTE | 2023-12-09 22:52 | NUR ---
Patient lying in bed, alert and oriented x4. pt denies chest pain and shortness of breath. IV in LAC is patent, site is clean dry and intact. +2 pitting edema in BLE, redness noted slightly on sacrum, moisture and redness in BLE folds, panus, under breast, desenex powder/ nystatin cream and moisture cloths applied. educated on NPO status at midnight, pt verbally agreed. pt has no further needs, questions, or concerns at this time. fall precautions in place, call light within reach. will continue to monitor.
[2023-12-10] VITALS (13 sets, daily range): BP systolic 95–146; BP diastolic 58–73; PULSE 54–75; TEMP 97.3–98.7
--- NOTE | 2023-12-10 07:42 | NUR ---
Pt lying supine in bed with HOB and FOB raised. Shift assessment completed. Pt is currently NPO. Pt has no other needs at this time.
[2023-12-10 08:24] LABS: BASO % 0.7 % (0.0-2.0); EOS # 0.1 K/mm3 (0.0-0.7); EOS % 2.3 % (0.0-4.0); GRAN # 3.9 K/mm3 (1.4-6.5); GRAN % 64.8 % (42.2-75.2); HEMOGLOBIN 11.2 g/dl (12.5-16.0); LYMPH # 1.3 K/mm3 (1.2-3.4); LYMPH % 21.6 % (20.0-51.0); MEAN CELL VOLUME 87 fl (80.0-100.0); MEAN CORPUSCULAR HEMOGLOBIN 27 pg (27-31); MEAN CORPUSCULAR HGB CONC 31 g/dl (33.0-37.0); MEAN PLATELET VOLUME 8.6 fl (7.4-10.4); MONO # 0.6 K/mm3 (0.1-0.6); MONO % 10.1 % (1.7-9.3); PLATELET COUNT 270 K/mm3 (130-400); RED BLOOD COUNT 4.18 M/mm3 (4.10-5.30); REDCELL DISTRIBUTION WIDTH-CV 14.6 % (11.5-14.5)
[2023-12-10 08:50] LABS: HEMATOCRIT 36.2 % (37.0-47.0)
--- NOTE | 2023-12-10 08:50 | NUR ---
PT LAYING IN BED UPON ENTERING. ASSESSMENT DONE. MEDS GIVEN PY CHILO ROCHE STUDENT, WITH INSTRUCTOR. INT TO LEFT AC PATENT, PT DOES REPORT LEFT ARM PAIN SINCE LAST NIGHT AND REFUSES PRN MEDS FOR PAIN AT THIS TIME. PT CURRENTLY NPO AWAITING CARDIOLOGY ORDERS. PT DENIES SHORTNESS OF BREATH AT THIS TIME. PUREWICK IN PLACE DRAINING CLEAR LIGHT YELLOW URINE. PT DENIES NEEDS AT THIS TIME. BED IN LOWEST POSITION, CALL LIGHT IN REACH, BED ALARM ON
[2023-12-10 08:52] LABS: CALCIUM 8.5 mg/dL (8.4-10.2); CREATININE, serum 0.85 mg/dL (0.57-1.11); POTASSIUM 3.3 mmol/L (3.5-4.5)
--- NOTE | 2023-12-10 09:25 | NUR ---
BRANDYN Cary received call from patient's [employer] vocational case manager Vinita(ph#[phone]). Vinita was inquiring about details of patient's hospitalization and curent discharge plan. BRANDYN Student informed Vinita of these details. Vinita stated that she is submitting an emergency crisis form and working with [employer] to try to get patient approved for a waiver to receive in home services. Vinita stated that she would hopefully get back with BRANDYN Dasilva today. BRANDYN Student informed Vinita that patient is anticipated to discharge today.
--- NOTE | 2023-12-10 09:34 | NUR ---
PT IN SINUS RHYTHM PER TELE ASSESSMENT. HALLIE, CARDIOLOGY, CALLED AND ASKED IF PT STILL NEEDS TO BE NPO. THIS NURSE TOLD THAT THEY ARENT CARDIOVERTING PT AND THAT IT IS OKAY FOR HER TO EAT. HALLIE TOLD THIS NURSE IT IS OKAY TO CHANGE NPO ORDER BACK TO PREVIOUS DIET.
--- NOTE | 2023-12-10 09:49 | NUR ---
SW Student contacted Shyla at [facility] to follow up with referral. Shyla informed patient that at this time they would have to decline referral due to them not being able to meet patient's needs.
[2023-12-10] MEDS ORDERED: Potassium Bicarbonate/Citrate 20 MEQ Effervescent TAB PO SCH (11:00)
[2023-12-10] MEDS ORDERED: *Potassium Replacement Protocol MC SCH (11:00)
--- NOTE | 2023-12-10 12:03 | NUR ---
BRANDYN Cary was informed that [facility] did not have a bariatric FWW but they do have a bariatric rollator. BRANDYN Cary called [facility] and spoke with Nadine. She confirmed that they only have a bariatric rollator. BRANDYN Cary questioned if rollator would be covered by patient's Medicaid. Nadine stated that it would not be covered by insurance unless patient had a FE or PD waiver. Nadine stated that the out of pocket cost could be up to $275 depending on patient's weight. BRANDYN Cary questioned if they had received DME order request that was sent yesterday. Nadine stated that it had not. Nadine stated that they do not have any other bariatric DME at this time. BRANDYN Student contact Twila (ph#[phone]) and informed her of patient's need for FWW. Twila stated that she would look on her side to see if there are any resources to help with finding one. Twila suggested to call Belkis at [facility] to fill her in on things to help speed up the waiver process. BRANDYN Cary informed Twila that she would be kept updated with anything new. BRANDYN Cary contacted Belkis at [facility] (ph#[phone]). BRANDYN Student informed Belkis of patient's current situation and needs. Belkis stated that she would need to speak with patient to get more details on her current situation to see if she met criteria for the crisis waiver to be approved. BRANDYN Cary informed Belkis that BRANDYN Dasilva and myself would be meeting with patient and her friend Vinita joe. BRANDYN Cary will provide patient Belkis's contact number to discuss criteria. BRANDYN Cary also called Twila, medicaid clinical case manager and updated her of what was going on.
--- NOTE | 2023-12-10 16:48 | NUR ---
BRANDYN Cary and BRANDYN Dasilva met with patient, friend Vinita, and daughter Prisca at bedside to discuss discharge planning. BRANDYN Dasilva provided updates and answered any questions. BRANDYN Cary informed patient of contact number for [employer] [facility] pillowcase cutter and Belkis with [facility]. BRANDYN Cary informed patient that Belkis would be contacting her to discuss crisis funding request. BRANDYN Cary contacted [employer] to check on process of intake with patient. Belkis informed BRANDYN Cary that Jim Steve from [facility] [place] would be completing intake with patient. BRANDYN Cary met with patient to check on intake process. Patient states that [employer] contacted her and informed her that jim would be completing intake. BRANDYN Cary was informed that Jim Steve left a message. BRANDYN Cary contacted Jim and informed her of patient's current situation and needs. BRANDYN Cary met with patient at bedside while Jim completed intake with patient via phone. Patient stated that both of her adult kids have disabilty, as well as herself. Patient stated she has disabilty for both mental health and physical conditions. Patient stated that her son's kaitlin and her friend Vinita are currently not working. Jim stated that because of this she did not think patient would qualify. Patient stated that she would still like to go through with the process as she is hopeful she will be approved. BRANDYN Cary reviewed current discharge plan with patient and confirmed that patient had [employer] [facility] pillowcase cutter's contact info (ph#[phone]) as well as Jim Steve with [facility] contact info (ph#[phone]). BRANDYN Cary informed patient that her [facility] pillowcase cutter was currently working on getting a FWW covered through her insurance. Patient stated that she would need [facility] Medicaid transportation at time of discharge. Patient also stated that her PCP had recently referred her to [facility] for PT and she plans on getting established and continuing with them. BRANDYN Cary refaxed [facility] referral to [facility]. BRANDYN Cary was informed that patient's [facility] pillowcase cutter was able to get [facility] to provide a bariatric FWW to patient and it would be delivered to patient's home within a couple weeks. [facility] with bariatric FWW until hers is delivered to home. BRANDYN Cary contacted [facility] and confirmed that FWW could be brought back to hospital once patient's FWW gets delivered. Discharge Plan: Home with bariatric FWW
--- NOTE | 2023-12-10 18:58 | NUR ---
report given to dannielle paula
[2023-12-11] VITALS (7 sets, daily range): BP systolic 95–128; BP diastolic 60–74; PULSE 53–61; TEMP 97.4–98.1
[2023-12-11 06:38] LABS: BASO % 0.7 % (0.0-2.0); EOS # 0.2 K/mm3 (0.0-0.7); EOS % 2.4 % (0.0-4.0); GRAN # 3.6 K/mm3 (1.4-6.5); GRAN % 58.4 % (42.2-75.2); HEMOGLOBIN 10.9 g/dl (12.5-16.0); LYMPH # 1.7 K/mm3 (1.2-3.4); LYMPH % 28.2 % (20.0-51.0); MEAN CELL VOLUME 85 fl (80.0-100.0); MEAN CORPUSCULAR HEMOGLOBIN 27 pg (27-31); MEAN CORPUSCULAR HGB CONC 32 g/dl (33.0-37.0); MEAN PLATELET VOLUME 8.5 fl (7.4-10.4); MONO # 0.6 K/mm3 (0.1-0.6); MONO % 9.8 % (1.7-9.3); PLATELET COUNT 268 K/mm3 (130-400); RED BLOOD COUNT 4.08 M/mm3 (4.10-5.30); REDCELL DISTRIBUTION WIDTH-CV 14.4 % (11.5-14.5)
[2023-12-11 06:52] LABS: HEMATOCRIT 34.5 % (37.0-47.0)
[2023-12-11 06:58] LABS: CALCIUM 8.8 mg/dL (8.4-10.2); CREATININE, serum 0.85 mg/dL (0.57-1.11); POTASSIUM 3.4 mmol/L (3.5-4.5)
--- NOTE | 2023-12-11 07:21 | NUR ---
Bedside report received from HENRY Hearn. Pt is currently asleep in bed with no complaints. Call light within reach.
[2023-12-11] MEDS ORDERED: Potassium Bicarbonate/Citrate 20 MEQ Effervescent TAB PO SCH (08:30)
--- NOTE | 2023-12-11 09:07 | NUR ---
Shift assessment completed. Pt is awake in bed watching tv with no complaints at this time. Pt reports no pain at this time. Pt ambulated to bathroom with NGUYEN Rivera. Medications administered per EMAR. Pt is alert and oriented x4. Telemetry in place. INT to Lt AC patent with no redness, swelling, or drainage. Pt has no request at this time. Call light within reach.
[2023-12-11] MEDS ORDERED: ELIQUIS 5MG PO (13:11)
[2023-12-11] MEDS ORDERED: BETAPACE 80MG80 MG PO (13:12)
[2023-12-11] MEDS ORDERED: LASIX 20MG TABL20 MG PO (13:15)
--- NOTE | 2023-12-11 14:27 | NUR ---
Discharge instructions provided to patient. Pt verbalized understanding of discharge paperwork. INT to Lt AC discontinued with tip intact. Pt tolerated well with no complaints. Pt is awaiting transportation to take her home.
--- NOTE | 2023-12-11 14:27 | NUR ---
SW visited with patient to confirm home address and set up transportation with [facility]). SW was successful on scheduling transportation for patient, nursing staff was also notified on the corn picker time for 615PM from ER. BRANDYN informed transportation team bariatric patient to accomdate patient needs. Patient ride confirmation #[id number] for 12/11/23 ER corn picker at 6:15PM
--- NOTE | 2023-12-11 15:36 | NUR ---
Pt left facility with transportion. 3 doses of Sotalol was sent with patient per Dr. Pressley and pharmacy.
== END 2023-12-11 15:39 | disposition home or self-care (01) | DRG 556 ==
LOC: COL.ER 16:25 → MEDICAL 20:45 → COL.ER 20:45 → MEDICAL 20:45
PROVIDERS: Nurse Practitioner; Nurse Practitioner Family; ADMIT Internal Medicine
DX: M79.89 Other specified soft tissue disorders (principal); Z68.45 Body mass index [BMI] 70 or greater, adult; I48.0 Paroxysmal atrial fibrillation; E87.6 Hypokalemia; I25.10 Atherosclerotic heart disease of native coronary artery without angina pectoris; I11.0 Hypertensive heart disease with heart failure; I50.9 Heart failure, unspecified; L30.4 Erythema intertrigo; E03.9 Hypothyroidism, unspecified; D64.9 Anemia, unspecified; E66.01 Morbid (severe) obesity due to excess calories
CPT/HCPCS: G0008; G0378

== ENCOUNTER → 2023-12-30 | Outpatient (RCR) | payer MEDICAID ==
[~2023-12-30] MED LIST changes: +BETAPACE 80MG80 MG PO
== END ==
LOC: WSPT
DX: I89.0 Lymphedema, not elsewhere classified (principal); R26.89 Other abnormalities of gait and mobility; G89.29 Other chronic pain

== ENCOUNTER 2024-01-27 14:30 | Outpatient (RCR) | payer MEDICAID | END 2024-01-30 | disposition home or self-care (01) | LOC: WSPT | DX: R53.81 Other malaise (principal); M79.606 Pain in leg, unspecified; R60.9 Edema, unspecified ==